=== PATIENT | male | born 1990 | race African-American/Black ===

== ENCOUNTER 2021-11-07 05:58 | Emergency (ER) | payer OTHER ==
[~2021-11-07] VITALS: Ht 182.9 cm; Wt 81.6 kg
[2021-11-07] MEDS ORDERED: LIDOCAINE VISCOUS 2% 15ML UD PO ONE (06:30)
[2021-11-07] MEDS ORDERED: FAMOTIDINE (10MG/ML) 2ML VL IV ONE (06:30)
[2021-11-07] MEDS ORDERED: ONDANSETRON HCL 4 MG/2 ML VIAL IV ONE ×4 (06:30→21:15)
[2021-11-07] MEDS ORDERED: ALUM & MAG HYDROX-SIMETH LIQ(MAALOX) 30 ML PO ONE (06:30)
[2021-11-07 07:12] LABS: Basophils # (auto) 0 10 ^3/uL (0-0.2); Basophils % (auto) 0.3 % (0.0-2.0); Eosinophils # (auto) 0.1 10 ^3/uL (0-0.8); Eosinophils % (auto) 1.6 % (0.0-7.0); Hematocrit 39.6 % (41.0-53.0); Hemoglobin 13.1 g/dL (13.5-17.5); Lymphocytes # (auto) 1.7 10 ^3/uL (0.4-5.4); Lymphocytes % (auto) 19.2 % (10.0-50.0); Mean Corpuscular Hgb Conc. 33.2 g/dL (32.0-36.0); Mean Corpuscular Volume 87.2 fL (80.0-100.0); Monocytes # (auto) 0.5 10 ^3/uL (0-1.3); Neutrophils # (auto) 6.3 10 ^3/uL (1.6-8.6); Neutrophils % (auto) 72.9 % (37.0-80.0); Red Blood Cells 4.54 10^6/uL (4.5-5.90); Red Cell Distribution Width 14.1 % (11.8-14.3); White Blood Cell 8.6 10^3/uL (4.4-10.8)
[2021-11-07 07:38] LABS: Albumin 3.5 g/dL (3.4-5.0); BUN/Creatinine Ratio 4.6; Calcium 8.7 mg/dL (8.5-10.1); Potassium 3.9 mmol/L (3.5-5.1)
[2021-11-07 07:41] LABS: Bilirubin, Total 0.5 mg/dL (0.2-1.0); Total Protein 6.6 g/dL (6.4-8.2)
[2021-11-07 07:47] LABS: Urine Bacteria NONE SEEN /hpf (None Seen); Urine Blood Negative /uL (Negative); Urine Mucus FEW (None Seen); Urine WBC 1 /hpf (0 - 3)
[2021-11-07] MEDS ORDERED: cefTRIAXone 1GM/50ML D5W 50 ML IV ONE (09:45)
[2021-11-07] MEDS ORDERED: metroNIDAZOLE 500MG/100ML 100 ML IV ONE (09:45)
[2021-11-07] MEDS ORDERED: MORPHINE SULFATE INJECTION 2 MG/ML SYRG IV ONE ×4 (09:45→21:15)
[2021-11-07] MEDS ORDERED: PROMETHAZINE HCL 25 MG/ML 1ML IV ONE (22:00)
[2021-11-07] MEDS ORDERED: HYDROmorphone HCL 2 MG/ML VL/or syr IV ONE (22:00)
[2021-11-07 23:10] VITALS: BP 122/79
== END 2021-11-07 23:28 | disposition short-term general hospital (02) ==
LOC: ER 05:58 → EDBD 05:58 → ER 23:28
DX: L02.211 Cutaneous abscess of abdominal wall (principal); Z20.822 Contact with and (suspected) exposure to COVID-19
CPT/HCPCS: 36415; 74177; 76705; 80053; 81001; 83605; 83690; 85025; 87426; 96365; 96367; 96375; 96376; 99285; J0696; J1170; J2270; J2405; J2550; J3490

== ENCOUNTER 2021-12-27 04:07 | Emergency (ER) | payer OTHER ==
[~2021-12-27] VITALS: Ht 185.4 cm; Wt 86.2 kg
[2021-12-27] MEDS ORDERED: MORPHINE SULFATE 4 MG/ML SYR/VIAL IV ONE ×2 (04:15→05:30)
[2021-12-27] MEDS ORDERED: ONDANSETRON HCL 4 MG/2 ML VIAL IV ONE (04:15)
[2021-12-27] MEDS ORDERED: TETANUS-DIPTH-ACEL PERTUSSIS 0.5ML SYR Tdap IM ONE (04:30)
[2021-12-27 04:40] LABS: Basophils # (auto) 0.1 10 ^3/uL (0-0.2); Basophils % (auto) 0.9 % (0.0-2.0); Eosinophils # (auto) 0.1 10 ^3/uL (0-0.8); Eosinophils % (auto) 1.1 % (0.0-7.0); Hemoglobin 14.1 g/dL (13.5-17.5); Lymphocytes # (auto) 2.5 10 ^3/uL (0.4-5.4); Lymphocytes % (auto) 20.3 % (10.0-50.0); Mean Corpuscular Hemoglobin 29.9 pg (28.0-32.0); Mean Corpuscular Hgb Conc. 35.1 g/dL (32.0-36.0); Mean Corpuscular Volume 85.1 fL (80.0-100.0); Monocytes # (auto) 0.8 10 ^3/uL (0-1.3); Monocytes % (auto) 6.4 % (0.0-12.0); Neutrophils # (auto) 8.8 10 ^3/uL (1.6-8.6); Neutrophils % (auto) 71.3 % (37.0-80.0); Nucleated Red Blood Cells % 0.2 %; Red Cell Distribution Width 14.2 % (11.8-14.3); White Blood Cell 12.3 10^3/uL (4.4-10.8)
[2021-12-27 05:00] LABS: Albumin 4.2 g/dL (3.4-5.0); Potassium 3.6 mmol/L (3.5-5.1)
[2021-12-27 05:06] LABS: BUN/Creatinine Ratio 9.1; Bilirubin, Total 0.7 mg/dL (0.2-1.0); Total Protein 7.9 g/dL (6.4-8.2)
[2021-12-27] MEDS ORDERED: ceFAZolin 1GM/50ML 50 ML IV ONE (05:15)
[2021-12-27] MEDS ORDERED: fentaNYL CITRATE 100 MCG/2 ML VL IV ONE (06:45)
[2021-12-27 06:53] VITALS: BP 131/82
== END 2021-12-27 07:31 | disposition short-term general hospital (02) ==
LOC: ER 04:07 → EDBD 04:07 → ER 07:31
DX: S81.831A Puncture wound without foreign body, right lower leg, initial encounter (principal); W34.00XA Accidental discharge from unspecified firearms or gun, initial encounter; Y93.89 Activity, other specified; Y92.89 Other specified places as the place of occurrence of the external cause; Y99.8 Other external cause status
CPT/HCPCS: 36415; 73502; 73552; 73590; 73630; 80053; 85025; 86850; 86900; 86901; 90471; 90715; 93005; 96365; 96375; 96376; 99285; J0690; J2270; J2405; J3010